=== PATIENT | male | born 1995 | race Caucasian/White ===

== ENCOUNTER 2021-07-25 21:37 | Emergency (ER) | payer MEDICAID ==
[~2021-07-25] VITALS: Ht 188 cm; Wt 86.4 kg
[~2021-07-25 21:37] MED LIST: IBUP-1986 PO
[2021-07-25 21:39] VITALS: BP 146/82
[2021-07-25] MEDS ORDERED: DOXY-1 PO (22:11)
== END 2021-07-25 22:18 ==
LOC: ER 21:38
DX: L03.116 Cellulitis of left lower limb (principal); F15.90 Other stimulant use, unspecified, uncomplicated; F11.90 Opioid use, unspecified, uncomplicated; Z91.14 Patient's other noncompliance with medication regimen; Z56.0 Unemployment, unspecified; Z79.2 Long term (current) use of antibiotics; Z79.899 Other long term (current) drug therapy
CPT/HCPCS: 99283

== ENCOUNTER 2023-10-25 23:27 | Emergency (ER) | payer MEDICAID ==
[~2023-10-25] VITALS: Ht 188 cm; Wt 87.3 kg
[2023-10-26 00:41] VITALS: TEMP 98.3
[2023-10-26 01:36] VITALS: BP 149/89; PULSE 104; RESP 16; O2SAT 96
== END 2023-10-26 01:46 ==
LOC: ER 23:28
DX: I10 Essential (primary) hypertension (principal); F15.90 Other stimulant use, unspecified, uncomplicated; F11.90 Opioid use, unspecified, uncomplicated; Z79.1 Long term (current) use of non-steroidal anti-inflammatories (NSAID)
CPT/HCPCS: 99283